=== PATIENT | female | born 1990 | race Caucasian/White ===

== ENCOUNTER 2023-05-27 10:25 | Outpatient (OUT) | payer MEDICAID, SELFPAY ==
--- NOTE | 2023-05-27 10:38 | US_ITS ---
[address] [address] Patient Name: ROGELIO RADER MRN: [id number] date: 1990 Sex: F Assigned Patient Location: Current Patient Location: US Accession/Order Number: [id number] Exam Date: 05/27/2023 10:40 Report Date: 05/27/2023 17:17 At the request of: NADIR JUNE Procedure: US OB anatomy twins EXAM: US OB anatomy twins HISTORY: 20 WEEKS GESTATION OF Z3A.20 COMPARISON: None. TECHNIQUE: Transabdominal images FINDINGS: Twin intrauterine gestation, diamniotic, dichorionic Cervix: Closed, 4.2 cm in length Fetus A: Position: Cephalic presentation, variable lie Amniotic fluid: Subjectively normal Placenta: Posterior fundal, grade 0. Placental edge 3.9 cm from the cervical os Heart rate: 141 bpm Normally visualized anatomy: Cerebellum, choroid plexus, cisterna magna, lateral cerebral ventricles, orbits, midline falx, hard palate, four-chamber heart, RVOT, LVOT, stomach, kidneys, bladder, umbilical cord insertion into the abdomen, three-vessel cord, cervical spine, thoracic spine, lumbar spine, sacral spine, right upper extremity, left upper extremity, right lower extremity, left lower extremity Suboptimally visualized anatomy: None BPD: 4.6 cm, 19 weeks 6 days, 81% Head circumference: 16.2 cm, 19 weeks 0 days, 34% Abdominal circumference: 30.6 cm, 19 weeks 0 days, 41% Femur length: 3.1 cm, 8 weeks 4 days, 56% Estimated weight: 282 g, 10 ounces, 51% Femur length BPD: 66.6 Femur length abdominal circumference: 22.6 Femur length head circumference: 18.9 Clinical age: 19 weeks 1 day Clinical JERZY: 10/20/2023 Ultrasound age: 19 weeks 3 days Ultrasound JERZY: 10/18/2023 Fetus B: Position: Cephalic presentation, variable lie Amniotic fluid: Subjectively normal Placenta: Posterior fundal, grade 0. Placental edge 3.9 cm from the cervical os Heart rate: 148 bpm Normally visualized anatomy: Cerebellum, choroid plexus, cisterna magna, lateral cerebral ventricles, orbits, midline falx, hard palate, four-chamber heart, RVOT, LVOT, stomach, kidneys, bladder, umbilical cord insertion into the abdomen, three-vessel cord, cervical spine, thoracic spine, lumbar spine, sacral spine, right upper extremity, left upper extremity, right lower extremity, left lower extremity Suboptimally visualized anatomy: None BPD: 4.5 cm, 19 weeks 4 days, 70% Head circumference: 16.4 cm, 19 weeks 1 day, 41% Abdominal circumference: 13.5 cm, 19 weeks 0 days, 40% Femur length: 3.1 cm, 19 weeks 4 days, 61% Estimated weight: 283 g, 10 ounces, 54% Femur length BPD: 69.0 Femur length abdominal circumference: 23.0 Femur length, head circumference: 18.9 Clinical age: 19 weeks 1 day Clinical JERZY: 10/20/2023 Ultrasound age: 19 weeks 2 days Ultrasound JERZY: 10/19/2023 IMPRESSION: Twin intrauterine gestation with normal anatomy Electronically authenticated by: JOHAN BROWN Date: 05/27/2023 17:17
== END 2023-05-27 10:26 | disposition home or self-care (01) ==
LOC: US 10:27
PROVIDERS: PCP Family Medicine; Visit Provider Obstetrics & Gynecology
DX: Z36.89 Encounter for other specified antenatal screening (principal)
CPT/HCPCS: 76805; 76810

== ENCOUNTER 2023-07-12 10:16 | Outpatient (OUT) | payer MEDICAID, SELFPAY ==
[2023-07-12 10:08] VITALS: BP 129/78; PULSE 79; RESP 18; TEMP 36.4; O2SAT 98
== END 2023-07-12 10:17 | disposition home or self-care (01) ==
LOC: INF 10:17
PROVIDERS: PCP Family Medicine; Visit Provider Obstetrics & Gynecology
DX: O99.019 Anemia complicating pregnancy, unspecified trimester (principal); D64.9 Anemia, unspecified; Z3A.00 Weeks of gestation of pregnancy not specified
CPT/HCPCS: 96365; J1439

== ENCOUNTER 2023-07-19 10:30 | Outpatient (OUT) | payer MEDICAID, SELFPAY ==
[2023-07-19 10:10] VITALS: BP 142/91; PULSE 80; RESP 18; TEMP 36.6; O2SAT 98
--- NOTE | 2023-07-19 10:10 | PC.NURSE ---
Pt. to [facility] amb. Seated in recliner. VSS. Denied adverse reaction to last dose of Injectafer. IV initiated to left ac on first attempt. Pt. tolerates without c/o. IV Injectafer initiated at this time. Pt. given water and warm blanket. Denies needs.
== END 2023-07-19 10:31 | disposition home or self-care (01) ==
LOC: INF 10:30
PROVIDERS: PCP Family Medicine; Visit Provider Obstetrics & Gynecology
DX: O99.019 Anemia complicating pregnancy, unspecified trimester (principal); Z3A.00 Weeks of gestation of pregnancy not specified
CPT/HCPCS: 96365; J1439

== ENCOUNTER 2025-05-15 07:45 | Outpatient (RCR) | payer MEDICAID, SELFPAY ==
[2025-05-08 07:58] VITALS: BP 144/87; PULSE 75; TEMP 36.3; O2SAT 96
--- NOTE | 2025-05-08 08:15 | PC.NURSE ---
2 attemps at IV per physician underwriter, 1 attempt per R Christiano
[2025-05-08] MEDS: FERUMOXYTOL 510 MG in 0.9 % SODIUM CHLORIDE 100 ML 234 MG IV (08:17)
[2025-05-15 07:58] VITALS: BP 112/74; PULSE 86; TEMP 36.3; O2SAT 99
[2025-05-15] MEDS: FERUMOXYTOL 510 MG in 0.9 % SODIUM CHLORIDE 100 ML 234 MG IV (08:13)
[2025-05-16 05:07] LABS: Vitamin B12 271 pg/mL (232-1245)
== END 2025-05-28 23:59 | disposition home or self-care (01) ==
LOC: HEMC 07:45
PROVIDERS: PCP Family Medicine; Visit Provider Internal Medicine Hematology & Oncology
DX: D50.9 Iron deficiency anemia, unspecified (principal); K90.9 Intestinal malabsorption, unspecified; Z98.84 Bariatric surgery status; Z90.49 Acquired absence of other specified parts of digestive tract; E53.8 Deficiency of other specified B group vitamins
CPT/HCPCS: 82306; 82607; 96365; G0463; Q0138

== ENCOUNTER 2025-06-26 07:12 | Outpatient (RCR) | payer MEDICAID, SELFPAY | END 2025-06-28 23:59 | disposition home or self-care (01) | LOC: HEMC 07:12 | PROVIDERS: PCP Family Medicine; Visit Provider Internal Medicine Hematology & Oncology | DX: D50.9 Iron deficiency anemia, unspecified (principal); Z98.84 Bariatric surgery status; Z90.49 Acquired absence of other specified parts of digestive tract; E53.8 Deficiency of other specified B group vitamins; R53.83 Other fatigue; R53.1 Weakness | CPT/HCPCS: G0463 ==

== ENCOUNTER 2025-07-13 07:34 | Outpatient (RCR) | payer MEDICAID, SELFPAY ==
[2025-07-06 07:55] VITALS: BP 120/83; PULSE 73; TEMP 36.7; O2SAT 98
[2025-07-06] MEDS: FERRIC CARBOXYMALTOSE 750 MG in 0.9 % SODIUM CHLORIDE 250 ML 795 MG IV (08:11)
[2025-07-13 08:14] VITALS: BP 108/72; PULSE 68; TEMP 36.3; O2SAT 98
[2025-07-13] MEDS: FERRIC CARBOXYMALTOSE 750 MG in 0.9 % SODIUM CHLORIDE 250 ML 795 MG IV (08:27)
== END 2025-07-29 23:59 | disposition home or self-care (01) ==
LOC: HEMC 07:34
PROVIDERS: PCP Family Medicine; Visit Provider Internal Medicine Hematology & Oncology
DX: D50.9 Iron deficiency anemia, unspecified (principal); K90.9 Intestinal malabsorption, unspecified
CPT/HCPCS: 96365; J1439

== ENCOUNTER 2025-09-17 08:51 | Outpatient (RCR) | payer MEDICAID, SELFPAY ==
[2025-09-17 09:11] VITALS: BP 122/72; PULSE 70; TEMP 36.6; O2SAT 98
[2025-09-17] MEDS: FERRIC CARBOXYMALTOSE 750 MG in 0.9 % SODIUM CHLORIDE 250 ML 795 MG IV (09:44)
[2025-09-17 10:15] LABS: Thyroid Stimulating Hormone 8.129 uIU/mL (0.358-3.740)
[2025-09-18 04:37] LABS: Vitamin B12 205 pg/mL (232-1245)
== END 2025-09-28 23:59 | disposition home or self-care (01) ==
LOC: HEMC 08:51
PROVIDERS: PCP Family Medicine; Visit Provider Internal Medicine Hematology & Oncology
DX: D50.9 Iron deficiency anemia, unspecified (principal); K90.9 Intestinal malabsorption, unspecified; Z98.84 Bariatric surgery status
CPT/HCPCS: 36415; 82306; 82607; 84443; 96365; J1439

== ENCOUNTER 2025-10-23 09:17 | Outpatient (RCR) | payer MEDICAID, SELFPAY ==
[2025-10-04 09:20] VITALS: BP 118/77; PULSE 81; TEMP 36.2; O2SAT 98
[2025-10-04] MEDS: CYANOCOBALAMIN 1,000 MCG/ML VIAL 1000 MCG IM (09:26)
[2025-10-09 09:27] VITALS: BP 109/73; PULSE 83; TEMP 36.5; O2SAT 99
[2025-10-09] MEDS: CYANOCOBALAMIN 1,000 MCG/ML VIAL 1000 MCG IM (09:39)
[2025-10-23 09:20] VITALS: BP 116/81; PULSE 68; TEMP 36.6; O2SAT 99
[2025-10-23] MEDS: CYANOCOBALAMIN 1,000 MCG/ML VIAL 1000 MCG IM (09:24)
== END 2025-10-28 23:59 | disposition home or self-care (01) ==
LOC: HEMC 09:17
PROVIDERS: PCP Family Medicine; Visit Provider Internal Medicine Hematology & Oncology
DX: D51.9 Vitamin B12 deficiency anemia, unspecified (principal); K90.9 Intestinal malabsorption, unspecified; D50.9 Iron deficiency anemia, unspecified
CPT/HCPCS: 96372; J3420

== ENCOUNTER 2025-11-13 08:59 | Outpatient (RCR) | payer MEDICAID, SELFPAY ==
[2025-10-30 09:39] VITALS: BP 110/80; PULSE 62; TEMP 36.4; O2SAT 97
[2025-10-30] MEDS: CYANOCOBALAMIN 1,000 MCG/ML VIAL 1000 MCG IM (09:45)
[2025-11-13 09:20] VITALS: BP 120/79; PULSE 70; TEMP 36.5; O2SAT 100
[2025-11-13] MEDS: CYANOCOBALAMIN 1,000 MCG/ML VIAL 1000 MCG IM (09:23)
== END 2025-11-28 23:59 | disposition home or self-care (01) ==
LOC: HEMC 08:59
PROVIDERS: PCP Family Medicine; Visit Provider Internal Medicine Hematology & Oncology
DX: D50.9 Iron deficiency anemia, unspecified (principal); K90.9 Intestinal malabsorption, unspecified; D51.9 Vitamin B12 deficiency anemia, unspecified
CPT/HCPCS: 96372; J3420